=== PATIENT | male | born 1985 | race African-American/Black ===

== ENCOUNTER 2024-03-06 09:32 | Emergency (ER) | payer SELFPAY ==
[2024-03-06 10:30] LABS: BASOPHILS ABSOLUTE AUTO 0.03 K/uL (0.00-0.20); BASOPHILS PERCENT AUTO 0.7 % (0.0-1.0); EOSINOPHILS ABSOLUTE AUTO 0.03 K/uL (0.00-0.45); EOSINOPHILS PERCENT AUTO 0.7 % (0.0-6.0); HEMATOCRIT 43.6 % (42.0-52.0); HEMOGLOBIN 15.2 g/dL (14.0-18.0); IMMATURE GRAN ABSOLUTE AUTO 0.02 K/uL (0.00-0.05); IMMATURE GRAN PERCENT AUTO 0.5 % (0.0-0.4); LYMPHOCYTES ABSOLUTE AUTO 1.81 K/uL (1.00-4.80); LYMPHOCYTES PERCENT AUTO 43.2 % (24.0-44.0); MEAN CORPUSCULAR HEMOGLOBIN 31.1 pg (28.0-32.0); MEAN CORPUSCULAR HGB CONC 34.9 g/dL (32.0-36.0); MEAN CORPUSCULAR VOLUME 89.3 fL (83.0-99.0); MEAN PLATELET VOLUME 8.6 fL (9.4-12.4); MONOCYTES ABSOLUTE AUTO 0.43 K/uL (0.00-0.80); MONOCYTES PERCENT AUTO 10.3 % (0.0-8.0); NEUTROPHILS ABSOLUTE AUTO 1.87 K/uL (1.80-7.70); NEUTROPHILS PERCENT AUTO 44.6 % (41.0-71.0); PLATELET COUNT,PLT 199 K/uL (150-400); RED BLOOD CELL COUNT 4.88 M/uL (4.52-5.90); WHITE BLOOD CELL COUNT,WBC 4.19 K/uL (3.9-11.3)
[2024-03-06] MEDS: Sodium Chloride 0.9% 1,000 ML IV ONE (10:31)
[2024-03-06] MEDS: Sodium Chloride 0.9% 2.5 ML Syringe FLUSH PRN (10:32)
[2024-03-06] MEDS: Sodium Chloride 0.9% 10 ML Syringe FLUSH PRN (10:32)
[2024-03-06 11:12] LABS: A/G RATIO 1.5 (0.9-1.6); ALANINE AMINOTRANSFERASE,ALT 30 IU/L (14-63); ALBUMIN 4.3 g/dL (3.4-5.0); ALKALINE PHOSPHATASE 53 U/L (46-116); ASPARTATE AMNIOTRANSFERASE,AST 16 IU/L (15-37); BILIRUBIN TOTAL 0.6 mg/dL (0.2-1.0); BLOOD UREA NITROGEN,BUN 17 mg/dL (7.0-18.0); CALCIUM 9.2 mg/dL (8.5-10.1); CARBON DIOXIDE,CO2 26.9 mmol/L (21.0-32.0); CHLORIDE,CL 106 mmol/L (98-107); CREATININE 1.3 mg/dL (0.8-1.3); EST CRCL DRUG DOSING (CG) 82.86 mL/min; GLUCOSE RANDOM 115 mg/dL (74-106); POTASSIUM,K 4.3 mmol/L (3.5-5.1); PROTEIN TOTAL,TP 7.2 g/dL (6.4-8.2); SODIUM,NA 140 mmol/L (136-148); TSH ULTRASENSITIVE 1.02 uIU/mL (0.36-3.74)
[2024-03-06 11:16] LABS: ESTIMATED GFR 73 mL/min (>60)
== END 2024-03-06 11:37 | disposition home or self-care (01) ==
LOC: MW.ED 09:32
DX: R55 Syncope and collapse (principal); Z75.8 Other problems related to medical facilities and other health care
CPT/HCPCS: 36415; 70450; 80053; 84443; 84484; 85025; 93005; 96360; 99284; J7030; J3490